=== PATIENT | male | born 1960 | race American Indian/Alaskan Native ===

== ENCOUNTER 2020-02-18 09:22 | Outpatient (CLI) | payer OTHER | END 2020-02-18 20:47 | disposition home or self-care (01) | LOC: RAD 09:22 | DX: I10 Essential (primary) hypertension (principal); R06.9 Unspecified abnormalities of breathing; Z86.73 Personal history of transient ischemic attack (TIA), and cerebral infarction without residual deficits; M25.511 Pain in right shoulder; M79.605 Pain in left leg; R26.2 Difficulty in walking, not elsewhere classified; H91.90 Unspecified hearing loss, unspecified ear; H53.9 Unspecified visual disturbance ==